=== PATIENT | female | born 1955 | race Caucasian/White ===

== ENCOUNTER → 2021-06-09 16:10 | Outpatient (BNVA) | payer OTHER, SELFPAY | PROVIDERS: Visit Provider Nurse Practitioner Family | DX: Z20.822 Contact with and (suspected) exposure to COVID-19 (principal); J06.9 Acute upper respiratory infection, unspecified | CPT/HCPCS: 87426 ==

== ENCOUNTER 2022-07-08 18:12 | Emergency (ER) | payer MEDICARE, SELFPAY ==
[2022-07-08 18:19] VITALS: BP 149/93; PULSE 78; RESP 16; TEMP 36.9; O2SAT 96; BMI 30.5
--- NOTE | 2022-07-08 18:37 | XRR_ITS ---
PROCEDURE INFORMATION: Exam: XR Left Elbow Exam date and time: 07/08/2022 6:41 PM Age: 67 years old Clinical indication: Injury or trauma; Other: Animal; Blunt trauma (contusions or hematomas); Elbow; Left; Additional info: Left elbow injury TECHNIQUE: Imaging protocol: Radiologic exam of the Left elbow. Views: 3 or more views. COMPARISON: No relevant prior studies available. FINDINGS: Bones/joints: Lateral view demonstrates elbow joint effusion. Acute nondisplaced fracture of the radial head extending to the articular surface. Distal humerus and proximal ulna are intact. Soft tissues: Unremarkable. XR/XR elbow LT min 3V* [id number] IMPRESSION: Acute nondisplaced fracture of the humeral head.
--- NOTE | 2022-07-08 19:01 | W.ED.EXTPRO ---
HPI - Extremity Problem General: Chief complaint: Extremity Injury, Upper Stated complaint: left arm injury Time Seen by Provider: 07/08/22 18:37 History of Present Illness: Patient is a 67-year-old female comes to the ED with left elbow injury. Patient was seen at urgent care and sent over here to the ED for likely elbow fracture to get a referral to Ortho and pain meds. Injury occurred earlier today. Patient says she was outside and she fell over and one of her cow stepped on her left elbow area. Denies any other injury. She states the cow did not step on any other part of her body. Denies any head injury. All of her pain is in her left elbow. Pain worsens with movement of the left arm. Associated symptoms: Deny chest pain, fever(s) or rash Review of Systems Const: Denies: fever(s), chills or fatigue Eyes: Denies: change in vision or eye discomfort ENMT: Denies: throat pain, odynophagia, nasal discharge or nasal congestion Card: Denies: chest pain, palpitations, edema, swelling of feet/ankles, dyspnea on exertion or orthopnea Resp: Denies: dyspnea, productive cough or non-productive cough GI: Denies: abdominal pain, nausea, vomiting, diarrhea, constipation or hematochezia : Denies: flank pain, dysuria or hematuria Musc: Reports: extremity pain (Left elbow); Denies: neck pain, back pain or extremity swelling Skin/Breast: Denies: rash or new lesions Neuro: Denies: headache(s), numbness in extremities or weakness in extremities [facility] ED PFSH: Medical History GERD (gastroesophageal reflux disease) Hypothyroid No pertinent family history Social History Smoking and tobacco status: never smoked Physical Exam Const: COMMON NORMALS: no acute distress, patient oriented x3, healthy appearing and alert GENERAL APPEARANCE: cooperative and comfortable HENMT: COMMON NORMALS: normocephalic HEAD & SCALP: normocephalic MOUTH: Normal oral and palatal mucosa present THROAT: posterior oropharynx normal and uvula midline Neck/C-Spine: COMMON NORMALS: supple GENERAL: Yes normal visual inspection Resp: COMMON NORMALS: normal respiratory effort, No retractions, No use of accessory muscles and clear to auscultation bilaterally AUSCULTATION: clear to auscultation bilaterally Cardio: COMMON NORMALS: regular rate, regular rhythm, S1 normal heart sound present, S2 normal heart sound present, No gallops present (Cardio), No clicks present (Cardio), No murmurs present (Cardio) and Peripheral pulses 2+ throughout RATE: regular rate RHYTHM: regular rhythm HEART SOUNDS: S1 normal heart sound present and S2 normal heart sound present PERIPHERAL PULSES: Peripheral pulses 2+ throughout GI: COMMON NORMALS: Normal to inspection, nondistended, normoactive bowel sounds present, Soft to palpation, non-tender and no masses PALPATION: Yes Soft to palpation : COMMON NORMALS: Yes no CVA tenderness BLADDER/KIDNEY EXAM: Yes no CVA tenderness Back/Pelvis: COMMON NORMALS: no CVA tenderness Extremity: NARRATIVE EXTREMITY EXAM: Left elbow?mild swelling noted. No visible deformity seen. Tenderness to palpation of di humeral head and radial aspect of elbow. Neurovascular tact distally. GENERAL: Yes normal exam except as noted Neuro: COMMON NORMALS: patient oriented x3 SENSORIUM/ORIENTATION: Yes alert GAIT: Yes Normal gait present Skin: GENERAL SKIN EXAM: dry skin Course Vital Signs: Vital signs: Vital Signs Temperature 98.4 F 07/08/22 18:19 Pulse Rate 78 07/08/22 18:19 Respiratory Rate 16 07/08/22 18:19 Blood Pressure 149/93 07/08/22 18:19 Pulse Oximetry 96 07/08/22 18:19 Oxygen Delivery Me thod 07/08/22 18:19 MDM - Extremity (Nontraumatic) Medical Decision Making Patient is a 67-year-old female comes to the ED with left elbow injury. Patient was seen at urgent care and sent over here to the ED for likely elbow fracture to get a referral to Ortho and pain meds. Injury occurred earlier today. Patient says she was outside and she fell over and one of her cow stepped on her left elbow area. Denies any other injury. Vitals are stable. Exam shows Left elbow?mild swelling noted. No visible deformity seen. Tenderness to palpation of di humeral head and radial aspect of elbow. Neurovascular tact distally. X-ray of left elbow shows acute nondisplaced fracture of the humeral head and acute nondisplaced fracture of the radial head. Patient was put in a long arm splint and sling. I put an order in with case management for patient to be referred to Ortho for follow-up on elbow fracture. Patient did not want any pain meds and states that she is fine just taking [id number] ibuprofen or Tylenol for pain at home. She was stable for discharge home and told to keep splint on and dry and limit activity with left arm until seen and cleared by Ortho. Patient understood and agreed with plan. Lab Data Radiology Impressions Elbow X-Ray 07/08/22 18:37 IMPRESSION: Acute nondisplaced fracture of the humeral head. ADDENDUM: 07/08/221926 IMPRESSION: Acute nondisplaced fracture of the radial head. Discharge Plan Discharge Patient Disposition: Home Clinical Impression: Elbow fracture, left Qualifiers: Encounter type: initial encounter Fracture type: closed Qualified Code(s): S42.402A - Unspecified fracture of lower end of left humerus, initial encounter for closed fracture Condition: Stable Prescriptions: No Action levothyroxine 112 mcg capsule 112 mcg PO DAILY pantoprazole 20 mg tablet,delayed release (DR/EC) 20 mg PO DAILY multivitamin Tablet 1 tab PO DAILY cholecalciferol (vitamin D3) 125 mcg (5,000 unit) capsule 125 mcg PO DAILY biotin 1 mg tablet 1 mg PO DAILY Discharge Orders: Discharge ED (Routine); Ordered 07/08/22 Ordered By: Edgard Velasquez Referrals: Cyndee Garcia NP [Primary Care Provider] - Discharge Diet: Regular Discharge Activity: Limit activity as instructed Patient Instructions: Elbow Fracture (ED) Activity Restrictions/Additional Instructions: Follow-up with medical provider as directed. Case management should be contacted in the next several days to set up an appointment with Ortho for follow-up on elbow fracture. Keep splint on and dry and limit any activity with left arm until cleared by Ortho. Take [id number] Tylenol or Motrin for pain. Return to the ER or your medical provider if condition worsens. Please read and understand discharge instructions. Thank you for choosing [facility] for your healthcare needs today. Please realize this is an emergency room and that we are providing you with a medical screening exam and this may not be complete and all inclusive of all the testing and or work up that you may need to determine your ailment or severity of your illness. It is very important that you follow up as instructed or that you return to the Emergency Department should you have concerns or if your condition changes or worsens in any way. Coding Level of Care Code ED Block Out Machine Operator for Marline Fwd Exam Comprehensive
--- NOTE | 2022-07-10 09:05 | DCPLANNER ---
Addendum entered by Jasmyne Kern 07/12/22 12:35: Patient had a follow up appointment scheduled with ortho - patient did attend appointment Addendum entered by Jasmyne Kern 07/11/22 14:16: Patient has a follow up appointment scheduled for Monday, July 11, 2022 at 3:15 with Cortez Felix at ortho. Clinic will call patient with appointment information. Original Note: insurance manager had message to schedule a follow up appointment for patient with ortho. insurance manager sent patients information to the front office staff at ortho. Patients information will be printed and reviewed. Clinic will call patient with appointment information.
== END 2022-07-08 20:11 | disposition home or self-care (01) ==
PROVIDERS: Emergency Provider Physician Assistant; PCP Nurse Practitioner Family
DX: S42.402A Unspecified fracture of lower end of left humerus, initial encounter for closed fracture (principal); E03.9 Hypothyroidism, unspecified; W55.29XA Other contact with cow, initial encounter
CPT/HCPCS: 29105; 73080; 99283

== ENCOUNTER → 2022-07-11 15:58 | Outpatient (BNVA) | payer MEDICARE, SELFPAY | PROVIDERS: PCP Nurse Practitioner Family; Referring Provider Emergency Medicine; Visit Provider Physician Assistant | DX: S42.402A Unspecified fracture of lower end of left humerus, initial encounter for closed fracture (principal); W55.29XA Other contact with cow, initial encounter | CPT/HCPCS: 73080; 99202; 99203 ==

== ENCOUNTER → 2022-07-25 14:02 | Outpatient (BNVA) | payer MEDICARE, SELFPAY | PROVIDERS: PCP Nurse Practitioner Family; Visit Provider Physician Assistant | DX: S52.125D Nondisplaced fracture of head of left radius, subsequent encounter for closed fracture with routine healing (principal); W55.29 Other contact with cow | CPT/HCPCS: 73080; 99213 ==

== ENCOUNTER → 2022-08-08 10:58 | Outpatient (BNVA) | payer MEDICARE, SELFPAY | PROVIDERS: PCP Nurse Practitioner Family; Visit Provider Physician Assistant | DX: S52.125D Nondisplaced fracture of head of left radius, subsequent encounter for closed fracture with routine healing (principal); W55.29 Other contact with cow | CPT/HCPCS: 73080; 99212; G0463 ==

== ENCOUNTER 2022-08-30 08:32 | Outpatient (CLI) | payer MEDICARE, SELFPAY ==
--- NOTE | 2022-08-30 08:39 | MM_ITS ---
WS: [id number] BILATERAL SCREENING DIGITAL TOMOSYNTHESIS MAMMOGRAM WITH CAD HISTORY: SCREENING COMPARISON: None available. Bilateral CC and MLO views with tomosynthesis and synthetic mammography submitted. Computer aided det ection analyzed. Breast composition: The breasts are heterogeneously dense, which may obscure small masses. No suspici ous masses, microcalcifications or architectural distortion. Biopsy clip in the anterior LEFT breast in the subareolar region with adjacent distortion. There is an additional biopsy clip in the posterio r LEFT breast. MM/[place] [id number] IMPRESSION: BI-RADS: 2-Benign FOLLOW UP: 1 Year Follow-up
== END 2022-08-30 08:33 | disposition home or self-care (01) ==
LOC: RAD 08:35
PROVIDERS: PCP Nurse Practitioner Family; Visit Provider Nurse Practitioner Family
DX: Z12.31 Encounter for screening mammogram for malignant neoplasm of breast (principal)
CPT/HCPCS: 77063; 77067

== ENCOUNTER 2022-09-11 12:37 | Outpatient (CLI) | payer MEDICARE, SELFPAY ==
--- NOTE | 2022-09-11 12:50 | XR_ITS ---
WS: [id number] SCREENING DEXA SCAN [employer] CLINICAL INFORMATION: ASYMPTOMATIC MENOPAUSAL STATE COMPARISON: None. FINDINGS: The L1-L4 bone mineral density measures 0.932 g/cm2. This corresponds to a T score score of -2.1 and Z score of -1.4. Left femoral neck bone mineral density measures 0.845 g/cm2. This corresponds to a T score of -1.3 an d Z score of -0.7. Right femoral neck bone mineral density measures 0.906 g/cm2. This corresponds to a T score -0.8of an d Z score of -0.3. Mean femoral neck bone mineral density measures 0.876 g/cm2. This corresponds to a T score of -1.0 an d Z score of -0.5. XR/XR DEXA axial skeleton* [id number] IMPRESSION: Osteopenia lumbar spine. Osteopenia femoral necks at the lower end of the range . Patient's FRAX calculated 10 year probability for major osteoporotic fracture i s 8.4 % and osteoporotic hip fracture is 0.9%. All
== END 2022-09-11 12:38 | disposition home or self-care (01) ==
LOC: RAD 12:38
PROVIDERS: PCP Nurse Practitioner Family; Visit Provider Nurse Practitioner Family
DX: Z78.0 Asymptomatic menopausal state (principal); M85.88 Other specified disorders of bone density and structure, other site
CPT/HCPCS: 77080

== ENCOUNTER 2023-03-22 12:46 | Outpatient (CLI) | payer MEDICARE, SELFPAY ==
--- NOTE | 2023-03-22 13:06 | XR_ITS ---
WS: [id number] Left knee, AP and lateral views, 03/22/2023 Clinical Data: PAIN IN RIGHT KNEE Comparison: None. Findings: No fractures or dislocations are seen. The joint spaces are normal. The patella is intact. The soft t issues are unremarkable. XR/XR knee LT 1-2V [id number] Impression: Negative left knee. Kellgren-Jean Classification: grade 0 (none): definite absence of x-ray art nges of osteoarthritis
--- NOTE | 2023-03-22 13:06 | XR_ITS ---
WS: [id number] Right knee, AP and lateral views, 03/22/2023 Clinical Data: PAIN IN RIGHT KNEE Comparison: None. Findings: No fractures or dislocations are seen. The joint spaces are normal. The patella is intact. The soft t issues are unremarkable. XR/XR knee RT 1-2V [id number] Impression: Negative right knee. Kellgren-Jean Classification: grade 0 (none): definite absence of x-ray art nges of osteoarthritis
== END 2023-03-22 12:47 | disposition home or self-care (01) ==
PROVIDERS: PCP Nurse Practitioner Family; Visit Provider Nurse Practitioner Family
DX: M25.561 Pain in right knee (principal); M25.562 Pain in left knee
CPT/HCPCS: 73560